=== PATIENT | female | born 1975 | race Caucasian/White ===

== ENCOUNTER 2019-01-13 20:32 | Emergency (ER) | payer SELFPAY ==
[~2019-01-13] VITALS: Ht 162.6 cm; Wt 113.4 kg
[~2019-01-13 20:32] MED LIST: AMIT10TA6 PO; HYDR12.56 PO; METO-395 PO; OMEP40CA36 PO; PANT40TA2 PO; SUCR1TAB36 PO
--- NOTE | 2019-01-13 20:50 | ED Lower Extremity ---
General Stated Complaint: DROPPED WOODEN BOARD ON L FOOT/SWELLING Source: patient Exam Limitations: no limitations History of Present Illness Date Seen by Provider: Jan 13, 2019 Time Seen by Provider: 20:48 Initial Comments To ER with reports of left foot pain and swelling. This is to the distal lateral aspect of the left foot, she dropped a piece of plywood on this just prior to arrival. There is no puncture or break in the skin. Just a large degree of swelling. Onset: just prior to arrival Severity: moderate Pain/Injury Location: left foot Method of Injury: direct blow Modifying Factors: Worse With Movement Allergies and Home Medications Allergies Coded Allergies: codeine (Unverified Allergy, Unknown, 10/12/15) Uncoded Allergies: BLOOD PRESSURE MEDICATIONS "DON'T KNOW NAMES" (Adverse Reaction, Unknown, 10/12/15) Home Medications Amitriptyline HCl 10 Mg Tablet, 10 MG PO DAILY, (Reported) Hydrochlorothiazide 12.5 Mg Tablet, 10 MG PO DAILY, (Reported) Metoprolol Succinate 100 Mg Tab.er.24h, 150 MG PO BID, (Reported) Pantoprazole Sodium 40 Mg Tablet.dr, 40 MG PO DAILY Prescribed by: ALLAN HUNTER on 10/12/15 1448 Sucralfate 1 Gm Tablet, 1 GM PO QID Prescribed by: ALLAN HUNTER on 10/12/15 1448 Patient Home Medication List Home Medication List Reviewed: Yes Review of Systems Constitutional: see HPI EENTM: see HPI Respiratory: no symptoms reported Cardiovascular: no symptoms reported Genitourinary: no symptoms reported Musculoskeletal: see HPI Skin: no symptoms reported Psychiatric/Neurological: No Symptoms Reported Past Olpvhdq-Zsuzih-Zigsbh Hx Patient Social History Recent Foreign Travel: No Contact w/Someone Who Travel: No Physical Exam Vital Signs Capillary Refill : Height, Weight, BMI Height: 5'4.00" Weight: 250lbs. 0.0oz. [id number]; 42.9 BMI Method: General Appearance: WD/WN, no apparent distress Respiratory: no respiratory distress, no accessory muscle use Hips: bilateral hip non-tender, bilateral hip normal inspection, bilateral hip normal range of motion Legs: bilateral leg non-tender, bilateral leg normal inspection, bilateral leg normal range of motion Knees: bilateral knee non-tender Ankles: bilateral ankle non-tender, bilateral ankle normal inspection, bilateral ankle normal range of motion Feet: left foot pain, left foot soft tissue tenderness, left foot swelling, left foot other (swelling and ecchymosis to the dorsal aspect of the foot over the third fourth and fifth metatarsals distally. About the size of half a golf ball.) Neurologic/Psychiatric: alert, normal mood/affect, oriented x 3 Progress/Results/Core Measures Results/Orders My Orders Orders - ASHOK DASH APRN Foot, Left, 3 Views (01/13/19 20:45) Departure Impression Primary Impression: Contusion of foot Qualified Codes: S90.32XA - Contusion of left foot, initial encounter Disposition: HOME, SELF-CARE Condition: Stable Departure-Patient Inst. Decision time for Depature: 20:50 Referrals: CAMACHO WILLIAM MD (PCP/Family) Primary Care Physician Patient Instructions: Contusion (DC) Add. Discharge Instructions: 1. Elevate the foot as much as possible. Keep the [place] wrap on it tonight. Apply any ice pack for 30 minutes to 1 hour every 1-2 hours to help reduce swelling. Tylenol and ibuprofen for pain. ASHOK DASH APRN Jan 13, 2019 20:50
[2019-01-13 21:16] VITALS: BP 145/82
--- NOTE | 2019-01-13 21:28 | Diagnostic Imaging Report ---
INDICATION: Dropped a piece of plywood across the left foot. Bruising and swelling. EXAMINATION: Left foot 01/13/2019 TECHNIQUE: 3 views of the foot. FINDINGS: Marked soft tissue swelling is seen about the forefoot. There is postoperative change along the distal tibia. Degenerative findings throughout the foot. On the oblique view there is lucency noted along the navicular possibly a nutrient foramen but a fracture line is not excluded, correlate for point tenderness. A vague lucency is also seen on the lateral view through the dorsum of the navicular. There is irregularity seen along the lateral border of the proximal first phalanx. This is age-indeterminate. A small interarticular fracture is not excluded, correlate for point tenderness. Diffuse irregularity along the sesamoids at the first metatarsal head, possibly chronic for this patient. If there is point tenderness to the sesamoids, a superimposed fracture is not excluded. Remaining findings appear to be chronic. IMPRESSION: 1. Abnormalities noted along the proximal first phalanx and navicular, nonspecific, see above discussion and correlate for point tenderness. 2. Diffuse marked soft tissue swelling. 3. Diffuse irregularity along the sesamoids at the first metatarsal head, possibly chronic for this patient. If there is point tenderness to the sesamoids, a superimposed fracture is not excluded. Dictated by: Dictated on workstation # [id number]
== END 2019-01-13 21:19 | disposition home or self-care (01) ==
LOC: EDUNIT# 20:32 → ER 20:33
DX: S90.32XA Contusion of left foot, initial encounter (principal); Z88.5 Allergy status to narcotic agent; W20.8XXA Other cause of strike by thrown, projected or falling object, initial encounter
CPT/HCPCS: 73630